=== PATIENT | female | born 1995 | race Caucasian/White ===

== ENCOUNTER 2018-01-09 18:52 | Emergency (ER) | payer OTHER ==
[~2018-01-09] VITALS: Ht 152.4 cm; Wt 63.8 kg
[~2018-01-09 18:52] MED LIST: BIOT1CAP3 PO; [UNRECOGNIZED DRUG - REMARK]
[2018-01-09 18:58] VITALS: TEMP 36.8; Ht 152.4 cm; Wt 63.8 kg
[2018-01-09] MEDS ORDERED: SODIUM CHLORIDE 0.9% 1000ML 1,000 ML IV STA (19:53)
[2018-01-09] MEDS ORDERED: ONDANSETRON INJ 2 MG/ML 2 ML VIAL IV STA (19:53)
[2018-01-09] MEDS ORDERED: ACETAMINOPHEN 500 MG TAB PO STA (19:53)
[2018-01-09] MEDS ORDERED: FAMOTIDINE 20 MG TAB PO ONE (20:00)
--- NOTE | 2018-01-09 20:12 | EMERGENCY ROOM VISIT NOTE ---
History Report prepared by [place]: Dayana Murray Under the Supervision of: Dr. Josiah Lobato M.D. First contact with patient: 19:49 Chief Complaint: ABDOMINAL PAIN Stated Complaint: SEVERE ABD PAIN AFTER EATING MEDICAL Nursing Triage Summary: c/o abdominal pain after eating today. medical abrotion on 01/05. History of Present Illness The patient is a 22 year old female who presents to the Emergency Room with complaints of persistent abdominal pain that began about 10 hours ago. She reports that she had a medical 4 days ago at [facility] in [place] due to personal reasons, noting that she was 7 weeks . The patient states that since then she has been experiencing menstrual cramps, fatigue, has been passing blood clots. Today, the patient states she ate some yogurt after she woke up and began experiencing a severe and sharp upper abdominal pain that was centralized. She notes that the pain was so severe she was having difficulty breathing, felt confused, and rated it a 10 out of 10 in discomfort. The patient took some anti acids, which did not help relieve her symptoms. She notes that aside from the pain, she has been experiencing headaches, diarrhea, and temperature of 99.7 degrees Fahrenheit. The patient denies any cough or congestion. She notes that her symptoms worsened when she tried to sit up. The patient currently rates her discomfort a 5 out of 10 in severity. Source of History: patient Onset: about 10 hours ago Position: abdomen (upper, centralized) Symptom Intensity: severe (currently 5/10) Quality: sharp (abdominal pain) Timing: other (persistent) Modifying Factors (Worsening): breathing, other (sit up) Associated Symptoms: + headache, + diarrhea, No cough Note: Associated symptoms include: temperature of 99.7 degrees Fahrenheit and felt confused. Patient denies: congestion. Review of Systems See HPI for pertinent positives and negatives. A total of ten systems were reviewed and were otherwise negative. Past Medical & Surgical Medical Problems: (1) Medical (2) No Known Active Medical Problems Family History Patient reports no known family medical history. Patient did not report any family history. Social History Smoking Status: Current Every Day Smoker Smokeless Tobacco Use: Unknown Alcohol Use: occasionally Drug Use: none Marital Status: single Housing Status: lives with roommate Occupation Status: [employer] student Current/Historical Medications Scheduled Biotin (Biotin), 5,000 MCG PO DAILY Famotidine (Pepcid), 20 MG PO BID Ondasetron Odt (Zofran Odt), 4 MG SL Q6H Miscellaneous Medications [nO mEDS] Allergies Coded Allergies: No Known Allergies (Unverified , 01/04/13) Physical Exam Vital Signs Date Time Temp Pulse Resp B/P (MAP) Pulse Ox O2 Delivery O2 Flow Rate FiO2 01/09/18 22:12 90 19 100 01/09/18 22:02 116/69 01/09/18 20:42 76 19 99 01/09/18 20:37 84 14 100 Room Air 01/09/18 20:31 110/72 01/09/18 20:27 122/71 01/09/18 18:58 36.8 93 18 135/77 97 Room Air Physical Exam GENERAL: Awake, alert, well-appearing, in no acute distress HENT: Normocephalic, atraumatic. Oropharynx unremarkable. EYES: Normal conjunctiva. Sclera non-icteric. NECK: Supple. No nuchal rigidity. FROM. No JVD. RESPIRATORY: Clear to auscultation. CARDIAC: Regular rate, normal rhythm. Extremities warm and well perfused. Pulses equal. ABDOMEN: Mild epigastric and lower abdominal tenderness. No peritoneal signs. RECTAL: Deferred. MUSCULOSKELETAL: Chest examination reveals no tenderness. The back is symmetrical on inspection without obvious abnormality. There is no CVA tenderness to palpation. No joint edema. LOWER EXTREMITIES: Calves are equal size bilaterally and non-tender. No edema. No discoloration. NEURO: Normal sensorium. No sensory or motor deficits noted. SKIN: No rash or jaundice noted. Medical Decision & Procedures ER Provider Diagnostic Interpretation: Radiology results as stated below per my review and radiologist interpretation: EXAMINATION: PELVIC ULTRASOUND (transabdominal) CLINICAL HISTORY: Pelvic pain status post medical . Evaluate for retained products of conception COMPARISON STUDY: None FINDINGS: The uterus measured 8.8 x 4.8 x 6.5 cm. The endometrial stripe measured 6 mm. There is mildly hypervascular.. The right ovary measured 37 x 20 x 21 mm.. The left ovary measured 33 x 41 x 34 mm. There is a 19 mm cyst, likely functional.. There is no ultrasonographic evidence of ovarian torsion. It should be noted that ovarian torsion can be present with normal Doppler ultrasonographic findings. There was no evidence of pathologic free pelvic fluid. The patient refused endovaginal scanning IMPRESSION: 1. 19 mm left ovarian follicle 2. 6 mm endometrium which is mildly hypervascular 3. Evaluation for retained products of conception is limited as the patient refused endovaginal scanning. Correlation with quantitative beta hCGs is recommended. Electronically signed by: Michele Sheikh M.D. 01/09/2018 9:49 PM Dictated Date/Time: 01/09/2018 9:46 PM Laboratory Results 01/09/18 20:10 Red Blood Count 4.34, Mean Corpuscular Volume 83.9, Mean Corpuscular Hemoglobin 28.8, Mean Corpuscular Hemoglobin Concent 34.3, Mean Platelet Volume 9.2, Neutrophils (%) (Auto) 68.6, Lymphocytes (%) (Auto) 22.4, Monocytes (%) (Auto) 7.3, Eosinophils (%) (Auto) 1.2, Basophils (%) (Auto) 0.1, Neutrophils # (Auto) 11.34, Lymphocytes # (Auto) 3.70, Monocytes # (Auto) 1.21, Eosinophils # (Auto) 0.20, Basophils # (Auto) 0.02 01/09/18 20:10 Test 01/09/18 20:10 01/09/18 20:25 White Blood Count 16.53 K/uL (4.8-10.8) Red Blood Count 4.34 M/uL (4.2-5.4) Hemoglobin 12.5 g/dL (12.0-16.0) Hematocrit 36.4 % (37-47) Mean Corpuscular Volume 83.9 fL (80-100) Mean Corpuscular Hemoglobin 28.8 pg (25-34) Mean Corpuscular Hemoglobin Concent 34.3 g/dl (32-36) Platelet Count 374 K/uL (130-400) Mean Platelet Volume 9.2 fL (7.4-10.4) Neutrophils (%) (Auto) 68.6 % Lymphocytes (%) (Auto) 22.4 % Monocytes (%) (Auto) 7.3 % Eosinophils (%) (Auto) 1.2 % Basophils (%) (Auto) 0.1 % Neutrophils # (Auto) 11.34 K/uL (1.4-6.5) Lymphocytes # (Auto) 3.70 K/uL (1.2-3.4) Monocytes # (Auto) 1.21 K/uL (0.11-0.59) Eosinophils # (Auto) 0.20 K/uL (0-0.5) Basophils # (Auto) 0.02 K/uL (0-0.2) RDW Standard Deviation 43.5 fL (36.4-46.3) RDW Coefficient of Variation 14.1 % (11.5-14.5) Immature Granulocyte % (Auto) 0.4 % Immature Granulocyte # (Auto) 0.06 K/uL (0.00-0.02) Anion Gap 8.0 mmol/L (3-11) Est Creatinine Clear Calc Drug Dose 126.8 ml/min Estimated GFR () > 150.0 Estimated GFR (Non- 131.9 BUN/Creatinine Ratio 15.9 (10-20) Calcium Level 9.0 mg/dl (8.5-10.1) Total Bilirubin 0.3 mg/dl (0.2-1) Direct Bilirubin < 0.1 mg/dl (0-0.2) Aspartate Amino Transf (AST/SGOT) 16 U/L (15-37) Alanine Aminotransferase (ALT/SGPT) 22 U/L (12-78) Alkaline Phosphatase 58 U/L (45-117) Total Protein 7.3 gm/dl (6.4-8.2) Albumin 4.1 gm/dl (3.4-5.0) Lipase 87 U/L (73-393) Human Chorionic Gonadotropin, Quant 2511 mIU/mL Urine Color YELLOW Urine Appearance CLEAR (CLEAR) Urine pH 6.5 (4.5-7.5) Urine Specific [place] 1.018 (1.000-1.030) Urine Protein NEG (NEG) Urine Glucose (UA) NEG (NEG) Urine Ketones TRACE (NEG) Urine Occult Blood 2+ (NEG) Urine Nitrite NEG (NEG) Urine Bilirubin NEG (NEG) Urine Urobilinogen NEG (NEG) Urine Leukocyte Esterase NEG (NEG) Urine WBC (Auto) 1-5 /hpf (0-5) Urine RBC (Auto) >30 /hpf (0-4) Urine Hyaline Casts (Auto) 1-5 /lpf (0-5) Urine Epithelial Cells (Auto) 10-20 /lpf (0-5) Urine Bacteria (Auto) NEG (NEG) Laboratory results reviewed by me Medications Administered Medications (Trade) Dose Ordered Sig/Judi Route Start Time Stop Time Status Last Admin Dose Admin Sodium Chloride 1,000 ml @ 999 mls/hr Q1H1M STAT IV 01/09/18 19:53 01/09/18 20:53 DC 01/09/18 20:19 999 MLS/HR Famotidine (Pepcid Tab) 20 mg NOW ONCE PO 01/09/18 20:00 01/09/18 20:03 DC 01/09/18 20:22 20 MG Ondansetron HCl (Zofran Inj) 4 mg NOW STAT IV 01/09/18 19:53 01/09/18 20:03 DC 01/09/18 20:23 4 MG Acetaminophen (Tylenol Tab) 1,000 mg NOW STAT PO 01/09/18 19:53 01/09/18 20:03 DC 01/09/18 20:23 1,000 MG Ketorolac Tromethamine (Toradol Inj) 15 mg NOW STAT IV 01/09/18 21:10 01/09/18 21:11 DC 01/09/18 21:56 15 MG ED Course 1950: The patient was evaluated in room B6. A complete history and physical exam was performed. 2204: I reevaluated the patient, who was resting comfortably. I updated her on test findings. The patient refused a vaginal ultrasound because she states that her pain was higher up, but i reminded her that she felt tenderness to palpation of the area. We discussed the treatment plan and she verbalized agreement. The patient is ready for discharge. Medical Decision I reviewed the patient's past medical history, medications, and the nursing notes as described above. The patient's presentation and history were concerning for retained products, endometriosis, urinary tract infection, pyelonephritis, gastritis, peptic ulcer, and gastroenteritis. The patient is a 22-year-old woman with a past medical history of a recent medical on 01/05 now presents emergency department with upper and lower abdominal pain per hpi. On arrival the patient is comfortable but no acute distress, afebrile stable vital signs. On exam the patient has mild epigastric and lower abdominal tenderness with no peritoneal signs. WBC 16, nonspecific. Chemistry unremarkable. UA, dirty sample and patient deny any urinary symptoms at this time thus will wait for cultures. HCG 2500 likely downtrending from recent . Patient was ordered for transabdominal and transvaginal ultrasound to evaluate for the possibility of retained products. However the patient refused the transvaginal ultrasound saying that her main symptoms were upper abdominal. Otherwise transabdominal ultrasound unremarkable though limited to assess for retained products. I discussed with patient the reasoning for ordering a transvaginal ultrasound as retained products could be a source for infection. However given the patient's main complaint is her upper abdominal pain with diarrhea. Symptoms most likely related to a gastritis/gastroenteritis. Thus will have the patient follow with S to repeat hCG to ensure downtrend will contact her [facility] at [place] to be seen sooner. Findings and plan for follow-up reviewed with patient. Patient agreeable and d/c'd per discharge instructions. Medication Reconcilliation Current Medication List: was personally reviewed by me Blood Pressure Screening Patient's blood pressure: Normal blood pressure Blood pressure disposition: Did not require urgent referral Impression Primary Impression: Epigastric abdominal pain Additional Impression: Lower abdominal pain Scribe Attestation The scribe's documentation has been prepared under my direction and personally reviewed by me in its entirety. I confirm that the note above accurately reflects all work, treatment, procedures, and medical decision making performed by me. Departure Information Dispostion Home / Self-Care Prescriptions Ondasetron Odt (ZOFRAN ODT) 4 Mg Tab 4 MG SL Q6H for Nausea, #10 TAB Prov: Josiah Lobato M.D. 01/09/18 Famotidine (PEPCID) 20 Mg Tab 20 MG PO BID for 7 Days, #14 TAB Prov: Josiah Lobato M.D. 01/09/18 Referrals No Doctor, Assigned (PCP) Forms HOME CARE DOCUMENTATION FORM, IMPORTANT VISIT INFORMATION Patient Instructions ED Abdominal Pain Unkn Cause, ED Gastritis, My [facility] Additional Instructions Please follow up with S in 2 days for re-evaluation and to repeat your hcg level. Contact your [facility] specialist in [place] to see if you may obtain a sooner appointment. The cause of your symptoms is unclear at this time but may be related to a gastritis/gastroenteritis. Otherwise, your exam, lab results, and ultrasound did not show signs of an emergent condition at this time. However your ultrasound was limited to exclude any retained products given you declined the transvaginal study. Acetaminophen or ibuprofen for pain and fevers as needed. Zofran as needed for nausea. Drink plenty of fluids to ensure hydration. Return to the emergency department for worsening symptoms as described in the accompanying instructions. Problem Qualifiers
[2018-01-09 20:30] LABS: BASO % 0.1 %; BASO ABS # 0.02 K/uL (0-0.2); EOS % 1.2 %; HEMATOCRIT 36.4 % (37-47); HEMOGLOBIN 12.5 g/dL (12.0-16.0); IG# 0.06 K/uL (0.00-0.02); LYMPH % 22.4 %; MEAN CELL VOLUME 83.9 fL (80-100); MEAN CORPUSCULAR HEMOGLOBIN 28.8 pg (25-34); MEAN CORPUSCULAR HGB CONC 34.3 g/dl (32-36); MEAN PLATELET VOLUME 9.2 fL (7.4-10.4); MONO % 7.3 %; MONO ABS # 1.21 K/uL (0.11-0.59); NEUT % 68.6 %; NEUT ABS # 11.34 K/uL (1.4-6.5); PLATELET COUNT 374 K/uL (130-400); RED CELL DISTRIBUTION WIDTH CV 14.1 % (11.5-14.5); RED CELL DISTRIBUTION WIDTH SD 43.5 fL (36.4-46.3); WHITE BLOOD COUNT 16.53 K/uL (4.8-10.8)
[2018-01-09 20:48] LABS: ALBUMIN 4.1 gm/dl (3.4-5.0); ALT/SGPT 22 U/L (12-78); BLOOD UREA NITROGEN 9 mg/dl (7-18); CARBON DIOXIDE 26 mmol/L (21-32); CREATININE 0.59 mg/dl (0.60-1.20); GLUCOSE 90 mg/dl (70-99); LIPASE 87 U/L (73-393); POTASSIUM 3.1 mmol/L (3.5-5.1); SODIUM 138 mmol/L (136-145)
[2018-01-09 20:51] LABS: ALKALINE PHOSPHATASE 58 U/L (45-117); AST/SGOT 16 U/L (15-37); TOTAL PROTEIN 7.3 gm/dl (6.4-8.2)
[2018-01-09] MEDS ORDERED: KETOROLAC TROMETHAMINE 30 MG/ML VIAL IV STA (21:10)
--- NOTE | 2018-01-09 21:50 | DIAGNOSTIC IMAGING REPORT ---
EXAMINATION: PELVIC ULTRASOUND (transabdominal) CLINICAL HISTORY: Pelvic pain status post medical . Evaluate for retained products of conception COMPARISON STUDY: None FINDINGS: The uterus measured 8.8 x 4.8 x 6.5 cm. The endometrial stripe measured 6 mm. There is mildly hypervascular.. The right ovary measured 37 x 20 x 21 mm.. The left ovary measured 33 x 41 x 34 mm. There is a 19 mm cyst, likely functional.. There is no ultrasonographic evidence of ovarian torsion. It should be noted that ovarian torsion can be present with normal Doppler ultrasonographic findings. There was no evidence of pathologic free pelvic fluid. The patient refused endovaginal scanning IMPRESSION: 1. 19 mm left ovarian follicle 2. 6 mm endometrium which is mildly hypervascular 3. Evaluation for retained products of conception is limited as the patient refused endovaginal scanning. Correlation with quantitative beta hCGs is recommended. Electronically signed by: Michele Sheikh M.D. 01/09/2018 9:49 PM Dictated Date/Time: 01/09/2018 9:46 PM
[2018-01-09] MEDS ORDERED: KETOROLAC TROMETHAMINE 15 MG/ML VIAL ONE (21:53)
[2018-01-09 22:02] VITALS: BP 116/69
[2018-01-09 22:12] VITALS: PULSE 90; O2SAT 100
[2018-01-09] MEDS ORDERED: FAMO20TA9 PO (22:17)
[2018-01-09] MEDS ORDERED: ONDA4TAB10 SL (22:17)
== END 2018-01-09 22:29 | disposition home or self-care (01) ==
LOC: C.EDB 18:54
DX: R10.13 Epigastric pain (principal); F17.210 Nicotine dependence, cigarettes, uncomplicated; Z98.890 Other specified postprocedural states; Z79.899 Other long term (current) drug therapy

== ENCOUNTER → 2018-01-17 | Outpatient (CLI) | payer OTHER ==
[~2018-01-17] MED LIST changes: +FAMO20TA9 PO; +ONDA4TAB10 SL
[2018-01-17 14:52] LABS: BASO % 0.2 %; BASO ABS # 0.02 K/uL (0-0.2); EOS % 0.8 %; EOS ABS # 0.09 K/uL (0-0.5); HEMATOCRIT 44.3 % (37-47); HEMOGLOBIN 15.3 g/dL (12.0-16.0); IG# 0.04 K/uL (0.00-0.02); LYMPH % 27.6 %; LYMPH ABS # 2.94 K/uL (1.2-3.4); MEAN CELL VOLUME 84.5 fL (80-100); MEAN CORPUSCULAR HEMOGLOBIN 29.2 pg (25-34); MEAN CORPUSCULAR HGB CONC 34.5 g/dl (32-36); MEAN PLATELET VOLUME 9.9 fL (7.4-10.4); MONO % 8.7 %; MONO ABS # 0.93 K/uL (0.11-0.59); NEUT % 62.3 %; NEUT ABS # 6.65 K/uL (1.4-6.5); PLATELET COUNT 481 K/uL (130-400); RED CELL DISTRIBUTION WIDTH CV 13.9 % (11.5-14.5); RED CELL DISTRIBUTION WIDTH SD 43.2 fL (36.4-46.3); WHITE BLOOD COUNT 10.67 K/uL (4.8-10.8)
[2018-01-17 15:10] LABS: ALBUMIN 4.9 gm/dl (3.4-5.0); ALT/SGPT 25 U/L (12-78); AST/SGOT 14 U/L (15-37); BLOOD UREA NITROGEN 11 mg/dl (7-18); CARBON DIOXIDE 28 mmol/L (21-32); CREATININE 0.72 mg/dl (0.60-1.20); GLUCOSE 76 mg/dl (70-99); LIPASE 110 U/L (73-393); POTASSIUM 3.7 mmol/L (3.5-5.1); SODIUM 135 mmol/L (136-145)
[2018-01-17 15:13] LABS: ALKALINE PHOSPHATASE 74 U/L (45-117); TOTAL PROTEIN 9.2 gm/dl (6.4-8.2)
== END | disposition home or self-care (01) ==
LOC: C.LAB 12:59
PROVIDERS: ATTEND Physician Assistant
DX: Z33.2 Encounter for elective termination of pregnancy (principal); D72.829 Elevated white blood cell count, unspecified; Z3A.00 Weeks of gestation of pregnancy not specified

== ENCOUNTER → 2018-01-18 | Outpatient (CLI) | payer OTHER ==
[~2018-01-18] MED LIST changes: +OPTIRAY 320 IV PRN
--- NOTE | 2018-01-18 16:39 | DIAGNOSTIC IMAGING REPORT ---
ABDOMEN AND PELVIS CT WITH IV AND ORAL CONTRAST CT DOSE: 292.99 mGy.cm HISTORY: Generalized abdominal pain. TECHNIQUE: Multiaxial CT images of the abdomen and pelvis were performed following the use of intravenous and oral contrast. A dose lowering technique was utilized adhering to the principles of ALARA. COMPARISON STUDY: None. FINDINGS: The lung bases are clear. No pneumoperitoneum. No pneumatosis. No fractures within the visualized osseous structures. The liver, gallbladder, pancreas, spleen, adrenal glands, and kidneys are unremarkable. No retroperitoneal lymphadenopathy. No bowel wall thickening or obstruction. Normal appendix. The bladder, uterus, and right ovary are unremarkable. There is a 1.9 cm cyst within the left ovary. IMPRESSION: 1. No bowel wall thickening or obstruction. 2. Normal appendix. 3. A 1.9 cm left ovarian cyst. Electronically signed by: Willem Patterson M.D. 01/18/2018 4:38 PM Dictated Date/Time: 01/18/2018 4:30 PM
== END | disposition home or self-care (01) ==
LOC: C.CTS 14:26
PROVIDERS: ATTEND Physician Assistant
DX: R10.9 Unspecified abdominal pain (principal); N83.202 Unspecified ovarian cyst, left side